=== PATIENT | female | born 1995 | race Caucasian/White ===

== ENCOUNTER 2017-05-12 17:58 | Emergency (ER) | payer BC, OTHER ==
[2017-05-12 18:53] LABS: #Basophils 0.1 thou/uL (0.0-0.2); #Lymphocytes 2.6 thou/uL (1.20-3.40); #Monocytes 0.5 thou/uL (0.11-0.59); #Neutrophils 6.5 thou/uL (1.40-6.50); %Basophils 1.4 % (0.0-1.0); %Eosinophils 0.2 % (0.0-10.0); %Lymphocytes 26.9 % (21.0-51.0); %Monocytes 5.1 % (0.0-10.0); %Neutrophils 66.4 % (42.0-75.0); Hemoglobin 14.8 g/dL (12.0-16.0); Mean Corpuscular HGB CONC 33.5 g/dL (32.0-36.0); Mean Corpuscular Volume 89.5 fl (81.0-99.0); Mean Platelet Volume 7.9 fL (7.4-10.4); Platelet Count 270 thou/uL (130-400); RBC Distribution Width 11.6 % (11.5-14.5); Red Blood Cell (RBC) Count 4.95 mill/uL (4.20-5.40); White Blood Cell (WBC) Count 9.8 thou/uL (4.8-10.8)
--- NOTE | 2017-05-12 18:57 | RAD ---
CHEST ONE VIEW: History: Left arm numbness and palpitations. Comparison: None. FINDINGS: The lungs are clear. No pneumothorax or effusion. Cardiac silhouette and mediastinal contours are wit hin normal limits. IMPRESSION: No acute intrathoracic abnormality. POS: [facility]
[2017-05-12 19:17] LABS: ALT (SGPT) 14 U/L (8-55); AST (SGOT) 20 U/L (5-34); Albumin 4.9 g/dL (3.5-5.0); Alkaline Phosphatase 72 U/L (40-150); Anion Gap 14 mmol/L (10-20); BUN (Urea Nitrogen) 12 mg/dL (7.0-18.7); Bilirubin, Total 1.2 mg/dL (0.2-1.2); CK (CPK) 82 U/L (29-168); Calc. Creatinine Clearance 0 mL/min (70-130); Calcium 10.1 mg/dL (7.8-10.44); Carbon Dioxide 23 mmol/L (22-29); Chloride 102 mmol/L (98-107); Estimated GFR-MDRD Greater than 90; Glucose 81 mg/dL (70-105); Lipase 14 U/L (8-78); Potassium 3.7 mmol/L (3.5-5.1); Protein, Total 7.9 g/dL (6.0-8.3); Sodium 135 mmol/L (136-145)
[2017-05-12 19:20] LABS: CKMB 0.7 ng/mL (0-6.6); Troponin I Less than 0.010 ng/mL (< 0.028)
[2017-05-12] MEDS ORDERED: diphenhydrAMINE 50 MG/ML VIAL ONE (20:44)
== END 2017-05-12 22:05 | disposition home or self-care (01) ==
LOC: ERS 17:58
DX: F43.9 Reaction to severe stress, unspecified (principal); F41.9 Anxiety disorder, unspecified; Z79.899 Other long term (current) drug therapy
CPT/HCPCS: 36415; 71045; 80053; 82550; 82553; 83690; 84484; 85025; 93005; 96361; 96374; J1200

== ENCOUNTER 2017-07-03 07:35 | Observation (INO) | payer BC ==
[2017-07-03] MEDS ORDERED: Acetaminophen 500 MG TAB ONE (07:46)
[2017-07-03 09:09] LABS: #Eosinphils 0.1 thou/uL (0.0-0.7); #Lymphocytes 1.9 thou/uL (1.20-3.40); #Monocytes 0.5 thou/uL (0.11-0.59); #Neutrophils 7.6 thou/uL (1.40-6.50); %Basophils 0.2 % (0.0-1.0); %Eosinophils 0.5 % (0.0-10.0); %Lymphocytes 18.8 % (21.0-51.0); %Monocytes 4.7 % (0.0-10.0); %Neutrophils 75.8 % (42.0-75.0); Hemoglobin 14.3 g/dL (12.0-16.0); Mean Corpuscular HGB CONC 34.9 g/dL (32.0-36.0); Mean Corpuscular Hemoglobin 30.7 pg (27.0-31.0); Mean Corpuscular Volume 87.9 fl (81.0-99.0); Platelet Count 207 thou/uL (130-400); RBC Distribution Width 11.2 % (11.5-14.5); Red Blood Cell (RBC) Count 4.65 mill/uL (4.20-5.40)
[2017-07-03 09:12] LABS: BHCG - Serum Negative (NEGATIVE)
[2017-07-03 09:13] LABS: Acetaminophen Less than 6.0 mcg/mL (10.0-30.0); Alcohol Less than 10 mg/dL (Less than 10); Salicylate Less than 8.0 mg/dL (15.0-30.0)
[2017-07-03 09:16] LABS: ALT (SGPT) 78 U/L (8-55); AST (SGOT) 107 U/L (5-34); Albumin 4.2 g/dL (3.5-5.0); Alkaline Phosphatase 60 U/L (40-150); Anion Gap 11 mmol/L (10-20); BUN (Urea Nitrogen) 17 mg/dL (7.0-18.7); Bilirubin, Total 1.5 mg/dL (0.2-1.2); Calc. Creatinine Clearance 0 mL/min (70-130); Calcium 9.1 mg/dL (7.8-10.44); Carbon Dioxide 21 mmol/L (22-29); Chloride 106 mmol/L (98-107); Estimated GFR-MDRD Greater than 90; Globulin 2.5 g/dL (2.4-3.5); Glucose 90 mg/dL (70-105); Lipase 404 U/L (8-78); Potassium 3.7 mmol/L (3.5-5.1); Protein, Total 6.7 g/dL (6.0-8.3); Sodium 134 mmol/L (136-145)
[2017-07-03 09:17] LABS: INR-International Normal Ratio 1.1; PTT 30.5 SEC (22.9-36.1)
[2017-07-03 09:18] LABS: Pregs Control Background? CLEAR/WHITE (CLR/WHITE); Pregs Control Bar Appear? YES (CONTROL BAR)
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
[2017-07-03 10:33] LABS: Bilirubin Negative (Negative); Blood, Urine Moderate (Negative); Clarity CLOUDY (Clear); Glucose, Urine (Dipstick) Negative (Negative); Leukocyte Moderate (Negative); Nitrite Positive (Negative); Protein, Urine (Dipstick) Trace mg/dL (Neg-Trace); Specific Gravity, Urine 1.016 (1.002-1.036); Urobilinogen 0.2 mg/dL (0.2-1.0)
[2017-07-03 10:35] LABS: Bacteria/HPF 4+ HPF (None Seen); Hyaline Casts/LPF 7-10 HYALINE CAST LPF (0-3 Hyaline); Pathc Cast-AUWi Flag 1.01 (0-2.49); Squamous Epithelial 0-3 HPF (0-3)
[2017-07-03 10:46] LABS: Amphetamine Detected (NotDetected); Barbiturates Screen Not Detected (NotDetected); Benzodiazepine Screen Not Detected (NotDetected); Cocaine Metabolite Screen Not Detected (NotDetected); Medtox Control Line Valid? VALID (VALID); Medtox Reader # READER 4; Methadone Not Detected (NotDetected); Methamphetamine Not Detected (NotDetected); Opiate Screen Not Detected (NotDetected); Oxycodone Screen Not Detected (NotDetected); Phencyclidine (PCP) Not Detected (NotDetected); THC/Cannabinoid Screen Not Detected (NotDetected); Tricyclic Screen Not Detected (NotDetected)
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
[2017-07-03] MEDS ORDERED: traMADol HCl 50 MG TAB PO PRN (12:04)
[2017-07-03] MEDS ORDERED: Dextrose 50% Abboject 50 ML SYRINGE SLOW IVP PRN (12:04)
[2017-07-03] MEDS ORDERED: Dextrose 5% in Water 1,000 ML IV PRN (12:04)
[2017-07-03] MEDS ORDERED: Ciprofloxacin 500 MG TAB ONE (12:20)
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
[2017-07-03] MEDS ORDERED: ISOVUE-370 76%-LOCM 1 ML ONE (13:37)
[2017-07-03 14:52] VITALS: BMI 27.8
[2017-07-03] MEDS: Ibuprofen 600 MG TAB PO SCH ×3 (15:02→23:33)
[2017-07-03] MEDS: traMADol HCl 50 MG TAB PO SCH ×3 (15:02→23:33)
[2017-07-03] MEDS: Acetaminophen 500 MG TAB PO SCH ×3 (15:02→23:33)
[2017-07-03] MEDS ORDERED: Promethazine 25 MG TAB PO PRN (18:45)
[2017-07-03] MEDS: Cipro 250 MG TAB PO SCH (23:33)
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
[2017-07-04 05:28] LABS: #Eosinphils 0.1 thou/uL (0.0-0.7); #Lymphocytes 2.8 thou/uL (1.20-3.40); #Monocytes 0.4 thou/uL (0.11-0.59); #Neutrophils 3.6 thou/uL (1.40-6.50); %Basophils 0.4 % (0.0-1.0); %Eosinophils 1.1 % (0.0-10.0); %Lymphocytes 40.1 % (21.0-51.0); %Monocytes 6.2 % (0.0-10.0); %Neutrophils 52.2 % (42.0-75.0); Hemoglobin 13.6 g/dL (12.0-16.0); Mean Corpuscular HGB CONC 33.8 g/dL (32.0-36.0); Mean Corpuscular Hemoglobin 29.5 pg (27.0-31.0); Mean Corpuscular Volume 87.5 fl (81.0-99.0); Platelet Count 218 thou/uL (130-400); RBC Distribution Width 11.4 % (11.5-14.5); Red Blood Cell (RBC) Count 4.59 mill/uL (4.20-5.40)
[2017-07-04] MEDS: Acetaminophen 500 MG TAB PO SCH ×2 (06:33→11:49)
[2017-07-04] MEDS: traMADol HCl 50 MG TAB PO SCH ×2 (06:33→11:44)
[2017-07-04] MEDS: Ibuprofen 600 MG TAB PO SCH ×2 (06:33→11:49)
[2017-07-04 11:43] VITALS: BP 103/68; TEMP 97.4
[2017-07-04] MEDS: Cipro 250 MG TAB PO SCH (11:43)
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
== END 2017-07-04 12:45 | disposition home or self-care (01) ==
LOC: ERS 07:35 → SURG A 13:52
PROVIDERS: ADMIT Surgery; ATTEND Surgery
DX: S36.116A Major laceration of liver, initial encounter (principal); G89.11 Acute pain due to trauma; N39.0 Urinary tract infection, site not specified; F90.9 Attention-deficit hyperactivity disorder, unspecified type; V49.49XA Driver injured in collision with other motor vehicles in traffic accident, initial encounter; Z79.3 Long term (current) use of hormonal contraceptives; Z79.2 Long term (current) use of antibiotics; Z79.899 Other long term (current) drug therapy
CPT/HCPCS: 36415; 71260; 74177; 80053; 80306; 80307; 81003; 81015; 83605; 83690; 84703; 85025; 85610; 85730; 87077; 87086; 87186; G0378; G0390

== ENCOUNTER 2018-11-13 08:00 | Outpatient (CLI) | payer BC ==
--- NOTE | 2018-11-13 09:57 | ULT ---
RIGHT BREAST DIAGNOSTIC ULTRASOUND: INDICATION: Unilateral right breast discharge that is clear and milky that has been ongoing for 1 year. FINDINGS: Evaluation of the retroareolar region demonstrates no evidence of ductal dilatation or visible sonogr aphic mass. IMPRESSION: Negative sonographic evaluation of the right breast. Negative imaging should never defer biopsy if f indings on clinical examination are suspicious. If there is further clinical concern for possible un derlying breast pathology inducing the unilateral right breast discharge, MRI of the breast with and without contrast would be helpful for further evaluation. Findings were explained to the patient jasson or to her leaving the breast center. POS: OFF
== END 2018-11-13 08:01 | disposition home or self-care (01) ==
LOC: BICULT 08:00
PROVIDERS: ATTEND Obstetrics & Gynecology
DX: N64.52 Nipple discharge (principal)

== ENCOUNTER 2018-11-25 12:39 | Outpatient (CLI) | payer BC ==
--- NOTE | 2018-11-25 14:04 | MRI ---
BRAIN MRI WITH AND WITHOUT CONTRAST: 11/25/18 HISTORY: Hyperprolactinemia, assess for pituitary mass. TECHNIQUE: Multiplanar and multisequence MR imaging of the brain obtained with and without contrast using a pitu itary mass protocol. FINDINGS: The diffusion weighted imaging demonstrates no evidence for acute infarction. The sagittal T1 weighted imaging demonstrates normal bone marrow signal intensity. There is no midline shift or mass effect and no ventricular enlargement is seen. No sellar or suprase llar mass lesion identified. Pituitary stalk appears unremarkable. The dynamic postcontrast imaging through the pituitary gland demonstrates no pituitary abnormality. Whole brain postcontrast imaging demonstrates no abnormal enhancement within the brain parenchyma. IMPRESSION: Unremarkable contrast enhanced brain MRI using the pituitary mass protocol. POS: [facility]
== END 2018-11-25 12:40 | disposition home or self-care (01) ==
LOC: BICMRI 12:39
PROVIDERS: ATTEND Obstetrics & Gynecology
DX: E22.1 Hyperprolactinemia (principal)
CPT/HCPCS: 70553